=== PATIENT | female | born 1955 | race Two or more races ===

== ENCOUNTER 2016-12-11 10:48 | Day surgery (SDC) | payer BC ==
[~2016-12-11] VITALS: Ht 162.6 cm; Wt 71.3 kg
[~2016-12-11 10:48] MED LIST: NAPR-260 PO; TRAM50TA2 PO
[2016-12-11] MEDS ORDERED: ATENOLOL (11:54)
[2016-12-11] MEDS ORDERED: IBUPROFEN (11:54)
[2016-12-11 11:56] VITALS: Ht 162.6 cm; Wt 71.3 kg
[2016-12-11 12:16] VITALS: BP 136/98; PULSE 65; RESP 18
[2016-12-11 13:10] VITALS: BP 128/74; RESP 18
[2016-12-11 13:15] VITALS: BP 136/66
[2016-12-11 13:20] VITALS: BP 141/83; RESP 18
[2016-12-11] MEDS ORDERED: FENTAnyl 50 MCG/ML VIAL ONE (13:45)
[2016-12-11] MEDS ORDERED: MIDAZOLAM 1 MG/ML 2 ML INJ ONE ×2 (13:45)
[2016-12-11 14:01] VITALS: BP 119/83; PULSE 66; RESP 18
--- NOTE | 2016-12-11 14:07 | GILP ---
DATE OF PROCEDURE: 12/11/2016 PREOPERATIVE DIAGNOSIS: Screening colonoscopy. POSTOPERATIVE DIAGNOSIS: Very fixed sigmoid colon with what looks like a small ventral hernia at th e hysterectomy scar. The sigmoid colon seems to be stuck, fixed here due to previous adhesions. PROCEDURE DONE: Colonoscopy up to mid transverse colon. SURGEON: Bee Castañeda MD DESCRIPTION OF PROCEDURE: The patient was put in left lateral decubitus after obtaining informed co nsent, was given 4 mg IV Versed and 100 mcg of fentanyl during the procedure. Rectal exam was done which was normal. Advanced a pediatric Olympus video colonoscope with some difficulty to the mid transverse colon. Co uld not advance any further including compression on the pelvic suprapubic area where the colon loop s and it is stuck with fixed sigmoid colon, probably due to previous hysterectomy. Thus, the scope was withdrawn. Mid transverse colon to rectum normal except for fixed looping sigmoid colon in the pelvic area. Recommend barium enema as outpatient. Followup as outpatient in a few weeks after the BE. Dictated By: BEE PRITCHETT Conf#: [id number] DID#: [id number] CC: CORNELIO OVALLE MD;*EndCC*
== END 2016-12-11 13:56 | disposition home or self-care (01) ==
LOC: GIL 10:48
PROVIDERS: ATTEND Internal Medicine
DX: K43.9 Ventral hernia without obstruction or gangrene (principal); I10 Essential (primary) hypertension; E78.5 Hyperlipidemia, unspecified
CPT/HCPCS: 45378; J2250; J3010; Z7610

== ENCOUNTER → 2017-01-29 | Outpatient (CLI) | payer BC ==
[~2017-01-29] MED LIST changes: +ATENOLOL; +IBUPROFEN; -NAPR-260 PO; -TRAM50TA2 PO
--- NOTE | 2017-01-29 16:17 | RADRPT ---
PROCEDURE: XR Abdomen. CLINICAL INDICATION: Abdomen pain. The the patient was originally scheduled for barium enema. TECHNIQUE: AP supine abdomen x-ray. COMPARISON: None. FINDINGS: A large amount of stool is present in the colon. There is no evidence of obstruction. There are no abnormal calcifications overlying the urinary tracts. Surgical clips are present bilaterally in the pelvis. There are degenerative changes of the spine. IMPRESSION: 1. Large amount of stool in the colon. The patient will be rescheduled for barium enema. RPTAT: QQ .Modesto Reyna MD, MD Date Time Electronically viewed and signed by .Modesto Reyna MD, MD on 01/29/2017 16:17 .R/
== END | disposition home or self-care (01) ==
LOC: RAD 10:01
PROVIDERS: ATTEND Internal Medicine
DX: K59.00 Constipation, unspecified (principal)
CPT/HCPCS: 74000

== ENCOUNTER 2017-03-12 10:53 | Inpatient (IN) | payer BC ==
[2017-03-12] VITALS (23 sets, daily range): BP systolic 90–163; BP diastolic 51–74; PULSE 60–74; RESP 15–22; Ht 154.9 cm; Wt 71.0 kg
[~2017-03-12] VITALS: Ht 154.9 cm; Wt 71.0 kg
[2017-03-12] MEDS ORDERED: POLYMYXIN/BACITRACIN 1L IRRIG ONE (11:43)
[2017-03-12] MEDS ORDERED: BACITRACIN/POLYMYXIN 28.35 GM OINT TOP ONE (11:44)
[2017-03-12] MEDS ORDERED: ASPI325T4 PO (12:02)
[2017-03-12] MEDS ORDERED: NAPR-688 PO (12:02)
[2017-03-12] MEDS ORDERED: CEFAZOLIN 1 GM INJ ONE (12:23)
[2017-03-12] MEDS ORDERED: PROPOFOL 100 ML ONE (12:23)
[2017-03-12] MEDS ORDERED: FENTAnyl 50 MCG/ML VIAL ONE (12:24)
[2017-03-12] MEDS ORDERED: morphine SULFATE/PF (10 MG/10 ML) INJ ONE (12:24)
[2017-03-12] MEDS ORDERED: MIDAZOLAM 1 MG/ML 2 ML INJ ONE ×2 (12:24→12:25)
[2017-03-12] MEDS ORDERED: TRANEXAMIC ACID 1,000 MG in SOD CHLORIDE 0.9% 100 ML IV ONE ×4 (12:30)
--- NOTE | 2017-03-12 12:34 | HPN ---
Date/Time of Note Date/Time of Note DATE: 03/12/17 TIME: 12:34 Interval H&P Admission Note Pt. seen H&P reviewed: No system changes CHIO RODRIGUEZ MD Mar 12, 2017 12:34
[2017-03-12] MEDS ORDERED: ROPIVACAINE 0.5 % 30 ML VIAL ONE (12:55)
[2017-03-12] MEDS ORDERED: METOCLOPRAMIDE 10 MG INJ ONE (12:57)
[2017-03-12] MEDS ORDERED: ONDANSETRON 4 MG INJ ONE (12:57)
[2017-03-12] MEDS ORDERED: DEXAMETHASONE 4 MG/ML 1 ML INJ ONE (12:57)
[2017-03-12] MEDS ORDERED: KETOROLAC 30 MG INJ ONE (12:57)
[2017-03-12] MEDS ORDERED: ACETAMINOPHEN 1000MG/100ML IV 100 ML ONE (12:57)
[2017-03-12] MEDS ORDERED: HETASTARCH 6% NACL 500 ML ONE (13:33)
[2017-03-12] MEDS ORDERED: PHENYLephrine (100 MCG/ML) 5ML SYG ONE ×3 (13:38→14:26)
[2017-03-12] MEDS ORDERED: EPHEDrine SULFATE 50 MG/5 ML SYG IV PRN (14:00)
[2017-03-12] MEDS ORDERED: DIPHENHYDRAMINE 50 MG INJ IV PRN ×2 (14:00)
[2017-03-12] MEDS ORDERED: METOCLOPRAMIDE 10 MG INJ IV PRN (14:00)
[2017-03-12] MEDS ORDERED: ALBUMIN HUMAN 5% 250 ML IV PRN (14:00)
[2017-03-12] MEDS ORDERED: NALBUPHINE HCL (10 MG/1 ML) INJ IV PRN (14:00)
[2017-03-12] MEDS ORDERED: morphine 2 MG INJ IV PRN (14:00)
[2017-03-12] MEDS ORDERED: NALOXONE (0.4 MG/ML) INJ IV PRN (14:00)
[2017-03-12] MEDS ORDERED: hydrALAzine 20 MG INJ IV PRN (14:00)
[2017-03-12] MEDS ORDERED: morphine 4 MG/ML VIAL IV PRN (14:00)
[2017-03-12] MEDS ORDERED: MEPERIDINE 25 MG INJ IV PRN (14:00)
[2017-03-12] MEDS ORDERED: HYDROmorphONE 1 MG/ML SYG IV PRN ×2 (14:00)
[2017-03-12] MEDS ORDERED: LABETALOL HCL 20MG INJ IV PRN (14:00)
[2017-03-12] MEDS ORDERED: ALBUMIN HUMAN 5% 250 ML ONE (14:00)
[2017-03-12] MEDS ORDERED: CEFAZOLIN 1 GM/50 ML (PMX) 50 ML IVPB ONE (14:53)
[2017-03-12] MEDS ORDERED: CEFAZOLIN 1 GM INJ IM ONE (15:00)
[2017-03-12 15:10] LABS: HEMATOCRIT 34.5 % (37.0-47.0); HEMOGLOBIN 11.3 g/dl (12.0-16.0)
[2017-03-12 15:27] LABS: CALCIUM 8.5 mg/dl (8.4-10.2); CREATININE 0.52 mg/dl (0.44-1.00); POTASSIUM 4.1 mmol/L (3.5-5.1)
[2017-03-12] MEDS ORDERED: CEFAZOLIN 1 GM/50 ML (PMX) 50 ML IVPB SCH (15:30)
[2017-03-12] MEDS: CEFAZOLIN 1 GM/50 ML (PMX) 50 ML IVPB SCH (21:39)
[2017-03-13 05:20] LABS: ADD SCAN DIFF NO
[2017-03-13 05:31] LABS: BASOPHILS % 0.1 % (0.0-2.0); HEMATOCRIT 33.8 % (37.0-47.0); HEMOGLOBIN 11.6 g/dl (12.0-16.0); LYMPHOCYTES # 0.9 10^3/ul (0.8-2.9); MEAN CORPUSCULAR HEMOGLOBIN 30.3 pg (29.0-33.0); MEAN CORPUSCULAR HGB CONC 34.3 g/dl (32.0-37.0); MEAN CORPUSCULAR VOLUME 88.3 fl (82.0-101.0); MEAN PLATELET VOLUME 10.6 fl (7.4-10.4); MONOCYTE # 0.4 10^3/ul (0.3-0.9); MONOCYTES % 3.6 % (0.0-11.0); NEUTROPHIL # 10.1 10^3/ul (1.6-7.5); NEUTROPHILS % 87.9 % (39.0-77.0); PLATELET COUNT 235 10^3/UL (140-415); RED BLOOD COUNT 3.83 10^6/ul (4.20-5.40); RED CELL DISTRIBUTION WIDTH 12.5 % (11.5-14.5); WHITE BLOOD COUNT 11.5 10^3/ul (4.8-10.8)
[2017-03-13] MEDS: CEFAZOLIN 1 GM/50 ML (PMX) 50 ML IVPB SCH ×3 (05:57→21:19)
[2017-03-13 06:16] LABS: CREATININE 0.47 mg/dl (0.44-1.00)
[2017-03-13 07:49] VITALS: BP 120/65; RESP 17
[2017-03-13] MEDS: ONDANSETRON 4 MG INJ IV PRN ×2 (10:27→17:03)
[2017-03-13] MEDS: HYDROCODONE/APAP (10/325) TAB PO PRN (13:22)
[2017-03-13 13:25] VITALS: BP 110/60; PULSE 70
[2017-03-13] MEDS ORDERED: ACETAMINOPHEN 325 MG TAB PO PRN ×2 (15:30→16:00)
[2017-03-13] MEDS ORDERED: ONDANSETRON 4 MG INJ IV PRN (16:00)
[2017-03-13] MEDS ORDERED: MAGNESIUM HYDROXIDE 30ML CUP PO PRN (16:00)
[2017-03-13] MEDS ORDERED: ZOLPIDEM 5 MG TAB PO PRN (16:00)
[2017-03-13] MEDS ORDERED: BISACODYL (EC) 5 MG TAB PO PRN (16:00)
[2017-03-13] MEDS ORDERED: ACETAMINOPHEN 650 MG SUPP PR PRN (16:00)
[2017-03-13] MEDS ORDERED: DOCUSATE SODIUM 100 MG CAP PO PRN (16:00)
[2017-03-13] MEDS ORDERED: NACL 0.9% 3 ML SYG IV SCH (16:00)
--- NOTE | 2017-03-13 16:11 | QN ---
Documentation Comment [id number] ES NEVES MD Mar 13, 2017 16:11
[2017-03-13] MEDS: ASPIRIN 325 MG TAB PO SCH (17:01)
[2017-03-13] MEDS ORDERED: RIVAROXABAN 10 MG TABLET PO SCH (17:55)
[2017-03-13 21:11] VITALS: BP 119/57; RESP 20
[2017-03-14] MEDS: HYDROCODONE/APAP (10/325) TAB PO PRN ×4 (00:36→21:08)
[2017-03-14] MEDS: PANTOPRAZOLE 40 MG INJ IV SCH (05:40)
[2017-03-14] MEDS: CEFAZOLIN 1 GM/50 ML (PMX) 50 ML IVPB SCH ×3 (05:40→21:09)
[2017-03-14 06:12] LABS: ADD SCAN DIFF NO
[2017-03-14 06:14] LABS: BASOPHILS % 0.3 % (0.0-2.0); HEMATOCRIT 34.4 % (37.0-47.0); HEMOGLOBIN 11.6 g/dl (12.0-16.0); LYMPHOCYTES # 1.1 10^3/ul (0.8-2.9); LYMPHOCYTES % 9.4 % (15.0-51.0); MEAN CORPUSCULAR HEMOGLOBIN 30.1 pg (29.0-33.0); MEAN CORPUSCULAR HGB CONC 33.7 g/dl (32.0-37.0); MEAN CORPUSCULAR VOLUME 89.4 fl (82.0-101.0); MEAN PLATELET VOLUME 10.7 fl (7.4-10.4); MONOCYTE # 0.9 10^3/ul (0.3-0.9); MONOCYTES % 7.7 % (0.0-11.0); NEUTROPHIL # 9.4 10^3/ul (1.6-7.5); NEUTROPHILS % 81.6 % (39.0-77.0); PLATELET COUNT 221 10^3/UL (140-415); RED BLOOD COUNT 3.85 10^6/ul (4.20-5.40); RED CELL DISTRIBUTION WIDTH 12.5 % (11.5-14.5); WHITE BLOOD COUNT 11.6 10^3/ul (4.8-10.8)
[2017-03-14 06:42] LABS: CALCIUM 8.9 mg/dl (8.4-10.2); CREATININE 0.56 mg/dl (0.44-1.00); POTASSIUM 3.5 mmol/L (3.5-5.1)
[2017-03-14 08:34] VITALS: BP 143/68; RESP 19
[2017-03-14] MEDS: ASPIRIN 325 MG TAB PO SCH (08:40)
[2017-03-14] MEDS: ATENOLOL 25 MG TAB PO SCH (08:40)
--- NOTE | 2017-03-14 10:37 | OPPN ---
Date/Time of Note Date/Time of Note DATE: 03/14/17 TIME: 10:37 Post-Anesthesia Notes Post-Anesthesia Note Last documented vital signs Vital Signs Date Time Temp Pulse Resp B/P Pulse Ox O2 Delivery O2 Flow Rate FiO2 03/14/17 08:34 98.8 103 19 143/68 91 03/12/17 20:00 Nasal Cannula 2.0 Activity: WNL Respiratory function: WNL Cardiovascular function: WNL Mental status: Baseline Pain reasonably controlled: Yes Hydration appropriate: Yes Nausea/Vomiting absent: Yes AMAURI ALVAREZ MD Mar 14, 2017 10:37
--- NOTE | 2017-03-14 14:34 | PN ---
Date/Time of Note Date/Time of Note DATE: 03/14/17 TIME: 14:33 Assessment/Plan VTE Prophylaxis VTE Prophylaxis Intervention: other Lines/Catheters IV Catheter Type (from Nrsg): Saline Lock Urinary Cath still in place: Yes Reason Cath still needed: other (indicate) Assessment/Plan Chief Complaint/Hosp Course S/P RT KNEE SURGERY PAIN PLAN XARELTO Problems: Subjective 24 Hr Interval Summary Respiratory: no complaints Cardiovascular: no complaints Gastrointestinal: no complaints Musculoskeletal: bone/joint pain (+) Exam/Review of Systems Vital Signs Vitals Vital Signs Date Time Temp Pulse Resp B/P Pulse Ox O2 Delivery O2 Flow Rate FiO2 03/14/17 08:34 98.8 103 19 143/68 91 03/12/17 20:00 Nasal Cannula 2.0 Intake and Output 03/13/17 03/13/17 03/14/17 15:00 23:00 07:00 Intake Total 50 ml 850 ml 730 ml Output Total 500 ml 2500 ml Balance 50 ml 350 ml -1770 ml Exam Neck: supple Respiratory: clear to auscultation Cardiovascular: regular rate and rhythm Gastrointestinal: soft Musculoskeletal: nl extremities to inspection Extremities: normal pulses Results Result Diagram: 03/14/17 0500 03/14/17 0500 Results 24 hrs Laboratory Tests Test 03/14/17 05:00 White Blood Count 11.6 H Red Blood Count 3.85 L Hemoglobin 11.6 L Hematocrit 34.4 L Mean Corpuscular Volume 89.4 Mean Corpuscular Hemoglobin 30.1 Mean Corpuscular Hemoglobin Concent 33.7 Red Cell Distribution Width 12.5 Platelet Count 221 Mean Platelet Volume 10.7 H Neutrophils % 81.6 H Lymphocytes % 9.4 L Monocytes % 7.7 Eosinophils % 0.0 Basophils % 0.3 Nucleated Red Blood Cells % 0.0 Neutrophils # 9.4 H Lymphocytes # 1.1 Monocytes # 0.9 Eosinophils # 0.0 Basophils # 0.0 Nucleated Red Blood Cells # 0.0 Sodium Level 134 L Potassium Level 3.5 Chloride Level 99 Carbon Dioxide Level 29 Anion Gap 10 # Blood Urea Nitrogen 13 Creatinine 0.56 Glucose Level 192 Calcium Level 8.9 Medications Medications Current Medications Hydromorphone HCl (Dilaudid) 0.2 mg Q2H PRN IV PAIN LEVEL 1-5; Start 03/12/17 at 14:00 Hydromorphone HCl (Dilaudid) 0.4 mg Q2H PRN IV PAIN LEVEL 6-10; Start 03/12/17 at 14:00 Morphine Sulfate (morphine) 2 mg Q2H PRN IV PAIN LEVEL 1-5; Start 03/12/17 at 14 :00 Morphine Sulfate (morphine) 4 mg Q2H PRN IV PAIN LEVEL 6-10; Start 03/12/17 at 14:00 Ondansetron HCl (Zofran Inj) 4 mg Q6H PRN IV NAUSEA AND/OR VOMITING Last administered on 03/13/17 17:03; Admin Dose 4 MG; Start 03/12/17 at 14:00 Naloxone HCl 0.2 mg 0.2 mg Q2M PRN IV FOR RESP RATE 8 OR LESS; Start 03/12/17 at 14:00 Cefazolin Sodium (Ancef 1 Gm/50 ml (Pmx)) 50 ml @ 100 mls/hr Q8 IVPB Last administered on 03/14/17 13:58; Admin Dose 100 MLS/HR; Start 03/12/17 at 22:00 Acetaminophen/ Hydrocodone Bitart ([place] (10/325)) 1 tab Q4H PRN PO PAIN Last administered on 03/14/17 12:44; Admin Dose 1 TAB; Start 03/13/17 at 08:00 Acetaminophen (Tylenol Tab) 650 mg Q6H PRN PO PAIN AND OR ELEVATED TEMP Last administered on 03/14/17 03:14; Admin Dose 650 MG; Start 03/13/17 at 15:30 Aspirin (Aspirin) 325 mg DAILY PO Last administered on 03/14/17 08:40; Admin Dose 325 MG; Start 03/13/17 at 16:00 Ondansetron HCl (Zofran Inj) 4 mg Q6H PRN IV NAUSEA AND/OR VOMITING; Start 03/13 at 16:00 Acetaminophen (Tylenol Tab) 650 mg Q6H PRN PO PAIN LEVEL 1-3 OR FEVER; Start at 16:00 Acetaminophen (Tylenol Supp) 650 mg Q6H PRN IN PAIN LEVEL 1-3 OR FEVER; Start 03/13/17 at 16:00 Docusate Sodium (Colace) 100 mg Q12H PRN PO CONSTIPATION; Start 03/13/17 at 16: 00 Magnesium Hydroxide (Milk Of Mag) 30 ml DAILY PRN PO CONSTIPATION; Start at 16:00 Bisacodyl (Dulcolax) 5 mg DAILY PRN PO CONSTIPATION; Start 03/13/17 at 16:00 Zolpidem Tartrate (Ambien) 5 mg QHS PRN PO SLEEP; Start 03/13/17 at 16:00 Pantoprazole (Protonix Iv) 40 mg DAILY@06 IV Last administered on 03/14/17 05: 40; Admin Dose 40 MG; Start 03/14/17 at 06:00 Atenolol (Tenormin) 25 mg DAILY PO Last administered on 03/14/17 08:40; Admin Dose 25 MG; Start 03/14/17 at 09:00 ES NEVES MD Mar 14, 2017 14:34
[2017-03-14] MEDS: RIVAROXABAN 10 MG TABLET PO SCH (17:09)
[2017-03-14 20:14] VITALS: BP 153/74; RESP 16
[2017-03-15] MEDS: HYDROCODONE/APAP (10/325) TAB PO PRN ×4 (02:41→22:52)
[2017-03-15 05:08] LABS: ADD SCAN DIFF NO
[2017-03-15 05:16] LABS: BASOPHIL # 0.1 10^3/ul (0.0-0.1); BASOPHILS % 0.5 % (0.0-2.0); EOSINOPHILS % 0.1 % (0.0-7.0); HEMATOCRIT 33.6 % (37.0-47.0); HEMOGLOBIN 11.2 g/dl (12.0-16.0); LYMPHOCYTES # 1.4 10^3/ul (0.8-2.9); LYMPHOCYTES % 10.6 % (15.0-51.0); MEAN CORPUSCULAR HEMOGLOBIN 29.6 pg (29.0-33.0); MEAN CORPUSCULAR HGB CONC 33.3 g/dl (32.0-37.0); MEAN CORPUSCULAR VOLUME 88.7 fl (82.0-101.0); MEAN PLATELET VOLUME 10.4 fl (7.4-10.4); MONOCYTE # 1.1 10^3/ul (0.3-0.9); MONOCYTES % 8.3 % (0.0-11.0); NEUTROPHIL # 10.2 10^3/ul (1.6-7.5); NEUTROPHILS % 79.8 % (39.0-77.0); PLATELET COUNT 212 10^3/UL (140-415); RED BLOOD COUNT 3.79 10^6/ul (4.20-5.40); RED CELL DISTRIBUTION WIDTH 12.6 % (11.5-14.5); WHITE BLOOD COUNT 12.8 10^3/ul (4.8-10.8)
[2017-03-15 05:42] LABS: CALCIUM 9.2 mg/dl (8.4-10.2); CREATININE 0.47 mg/dl (0.44-1.00); POTASSIUM 3.7 mmol/L (3.5-5.1)
[2017-03-15] MEDS: CEFAZOLIN 1 GM/50 ML (PMX) 50 ML IVPB SCH (06:03)
[2017-03-15] MEDS: PANTOPRAZOLE 40 MG INJ IV SCH (06:03)
[2017-03-15 08:00] VITALS: BP 139/67; RESP 18
[2017-03-15] MEDS: ASPIRIN 325 MG TAB PO SCH (09:02)
[2017-03-15] MEDS: ATENOLOL 25 MG TAB PO SCH (09:03)
[2017-03-15] MEDS: RIVAROXABAN 10 MG TABLET PO SCH (18:12)
[2017-03-15 19:30] VITALS: BP 139/71; RESP 18
[2017-03-15 19:41] VITALS: BP 132/72; RESP 19
--- NOTE | 2017-03-15 19:57 | PDOCDIS ---
Discharge Instructions CONDITION Patient Condition: Stable HOME CARE INSTRUCTIONS: Diet Instructions: RegularSpecial Diet: REGULAR ACTIVITY: Activity Restrictions: Slowly Increase Activity Rest between Activity Avoid heavy lifting Do not Drive Do not operate Machinery Do not operate Power Tool Avoid Heavy Housework Bathing Restrictions: Tub Bath FOLLOW UP/APPOINTMENTS Follow-up Plan see pcp [address] khanna 1 wk ES NEVES MD Mar 15, 2017 19:57
[2017-03-15] MEDS ORDERED: BISA5TAB6 PO (19:59)
[2017-03-15] MEDS ORDERED: Hydrocodone/Apap (10/325) PO (19:59)
[2017-03-15] MEDS ORDERED: RIVA10TA PO (19:59)
--- NOTE | 2017-03-15 20:36 | PN ---
Date/Time of Note Date/Time of Note DATE: 03/15/17 TIME: 20:35 Assessment/Plan VTE Prophylaxis VTE Prophylaxis Intervention: other Lines/Catheters IV Catheter Type (from Nrsg): Saline Lock Urinary Cath still in place: No Assessment/Plan Chief Complaint/Hosp Course S/P RT KNEE SURGERY leucocytosis PAIN meds PLAN XARELTO home soon Problems: Subjective 24 Hr Interval Summary Respiratory: shortness of breath Gastrointestinal: no complaints Genitourinary: no complaints Exam/Review of Systems Vital Signs Vitals Vital Signs Date Time Temp Pulse Resp B/P Pulse Ox O2 Delivery O2 Flow Rate FiO2 03/15/17 19:30 99.9 84 18 139/71 98 03/12/17 20:00 Nasal Cannula 2.0 Intake and Output 03/14/17 03/14/17 03/15/17 15:00 23:00 07:00 Intake Total 50 ml 770 ml 550 ml Output Total 550 ml Balance 50 ml 220 ml 550 ml Exam Neck: supple Respiratory: clear to auscultation Cardiovascular: regular rate and rhythm Gastrointestinal: soft Results Result Diagram: 03/15/17 0441 03/15/17 0441 Results 24 hrs Laboratory Tests Test 03/15/17 04:41 White Blood Count 12.8 H Red Blood Count 3.79 L Hemoglobin 11.2 L Hematocrit 33.6 L Mean Corpuscular Volume 88.7 Mean Corpuscular Hemoglobin 29.6 Mean Corpuscular Hemoglobin Concent 33.3 Red Cell Distribution Width 12.6 Platelet Count 212 Mean Platelet Volume 10.4 Neutrophils % 79.8 H Lymphocytes % 10.6 L Monocytes % 8.3 Eosinophils % 0.1 Basophils % 0.5 Nucleated Red Blood Cells % 0.0 Neutrophils # 10.2 H Lymphocytes # 1.4 Monocytes # 1.1 H Eosinophils # 0.0 Basophils # 0.1 Nucleated Red Blood Cells # 0.0 Sodium Level 138 Potassium Level 3.7 Chloride Level 97 Carbon Dioxide Level 29 Anion Gap 16 Blood Urea Nitrogen 11 Creatinine 0.47 Glucose Level 186 Calcium Level 9.2 Medications Medications Current Medications Hydromorphone HCl (Dilaudid) 0.2 mg Q2H PRN IV PAIN LEVEL 1-5; Start 03/12/17 at 14:00 Hydromorphone HCl (Dilaudid) 0.4 mg Q2H PRN IV PAIN LEVEL 6-10; Start 03/12/17 at 14:00 Morphine Sulfate (morphine) 2 mg Q2H PRN IV PAIN LEVEL 1-5; Start 03/12/17 at 14 :00 Morphine Sulfate (morphine) 4 mg Q2H PRN IV PAIN LEVEL 6-10; Start 03/12/17 at 14:00 Naloxone HCl (Narcan) 0.2 mg Q2M PRN IV FOR RESP RATE 8 OR LESS; Start 03/12/17 at 14:00 Acetaminophen/ Hydrocodone Bitart ([place] (10/325)) 1 tab Q4H PRN PO PAIN Last administered on 03/15/17 19:10; Admin Dose 1 TAB; Start 03/13/17 at 08:00 Acetaminophen (Tylenol Tab) 650 mg Q6H PRN PO PAIN AND OR ELEVATED TEMP Last administered on 03/14/17 03:14; Admin Dose 650 MG; Start 03/13/17 at 15:30 Aspirin (Aspirin) 325 mg DAILY PO Last administered on 03/15/17 09:02; Admin Dose 325 MG; Start 03/13/17 at 16:00 Ondansetron HCl (Zofran Inj) 4 mg Q6H PRN IV NAUSEA AND/OR VOMITING; Start 03/13 at 16:00 Acetaminophen (Tylenol Tab) 650 mg Q6H PRN PO PAIN LEVEL 1-3 OR FEVER; Start at 16:00 Acetaminophen (Tylenol Supp) 650 mg Q6H PRN RI PAIN LEVEL 1-3 OR FEVER; Start 03/13/17 at 16:00 Docusate Sodium (Colace) 100 mg Q12H PRN PO CONSTIPATION; Start 03/13/17 at 16: 00 Magnesium Hydroxide (Milk Of Mag) 30 ml DAILY PRN PO CONSTIPATION; Start at 16:00 Bisacodyl (Dulcolax) 5 mg DAILY PRN PO CONSTIPATION; Start 03/13/17 at 16:00 Zolpidem Tartrate (Ambien) 5 mg QHS PRN PO SLEEP; Start 03/13/17 at 16:00 Atenolol (Tenormin) 25 mg DAILY PO Last administered on 03/15/17 09:03; Admin Dose 25 MG; Start 03/14/17 at 09:00 Pantoprazole (Protonix Tab) 40 mg DAILY@06 PO ; Start 03/16/17 at 06:00 ES NEVES MD Mar 15, 2017 20:36
[2017-03-16] MEDS ORDERED: PANTOPRAZOLE (EC) 40 MG TAB PO SCH (06:00)
== END 2017-03-15 23:10 | disposition home health service (06) | DRG 470 ==
LOC: REC 10:53 → MS1 16:10
PROVIDERS: ADMIT Specialist; ATTEND Specialist
PROC: 0SRC0JZ Replacement of Right Knee Joint with Synthetic Substitute, Open Approach (ICD-10-PCS; principal; 2017-03-12 12:30)
DX: M17.11 Unilateral primary osteoarthritis, right knee (principal); I10 Essential (primary) hypertension
CPT/HCPCS: 80048; 85014; 85018; 85025; 87086; 88304; 88311; 97110; 97116; 97162; 97530; C9113; J0131; J0690; J1100; J1885; J2250; J2274; J2370; J2405; J2765; J2795; J3010; P9045

== ENCOUNTER 2018-07-27 08:35 | Day surgery (SDC) | END 2018-07-27 12:06 | disposition home or self-care (01) ==

== ENCOUNTER 2018-11-17 08:27 | Day surgery (SDC) | payer BC ==
[~2018-11-17] VITALS: Ht 157.5 cm; Wt 69.9 kg
[~2018-11-17 08:27] MED LIST changes: +ALEN70TA5 PO; +ATEN-51 PO; -ATENOLOL; +ENAL2.5T PO; +GLIM1TAB2 PO; -IBUPROFEN; +LOVA20TA PO; +METF500T24 PO
[2018-11-17 09:06] VITALS: Ht 157.5 cm; Wt 69.9 kg
[2018-11-17] MEDS ORDERED: RANI150T5 PO (09:11)
--- NOTE | 2018-11-17 09:17 | PREAC ---
Date/Time of Note Date/Time of Note DATE: 11/17/18 TIME: 09:16 Anesthesia Eval and Record Evaluation Time Pre-Procedure Interview DATE: 11/17/18 TIME: 09:16 Age 63 Sex female NPO: 8 hrs Preoperative diagnosis abdominal pain, screening Planned procedure EGD, colonoscopy Past Medical History Past Medical History: Includes Cardio: HTN, Dyslipidemia Endo: Diabetes GI: GERD Surgery & Anesthesia Issues No known issue Meds Anticoagulation: No Beta Kingsley within 24 hr: Yes Reason Beta Kingsley not given: Bradycarida, Hypotension Reported Medications Ranitidine Hcl* (Ranitidine Hcl*) 150 Mg Tablet, 150 MG PO Q12, #60 TAB 11/17/18 Lovastatin* (Lovastatin*) 20 Mg Tablet, 20 MG PO HS, TAB 07/27/18 Metformin Hcl* (Metformin Hcl*) 500 Mg Tablet, 500 MG PO WITH BREAKFAST, #30 TAB 07/27/18 Enalapril Maleate* (Enalapril Maleate*) 2.5 Mg Tablet, 2.5 MG PO DAILY, TAB 07/27/18 Atenolol* (Atenolol*) 25 Mg Tablet, 25 MG PO DAILY, #30 TAB 07/27/18 Discontinued Reported Medications Glimepiride* (Glimepiride*) 1 Mg Tablet, 1 MG PO WITH BREAKFAST DINNE, TAB 07/27/18 Alendronate Sodium* (Fosamax*) 70 Mg Tablet, 70 MG PO Q7D, #4 TAB 07/27/18 Meds reviewed: Yes Allergies Coded Allergies: No Known Allergy (Unverified , 07/27/18) Allergies Reviewed: Yes Labs/Studies Labs Reviewed: Reviewed by anesthesiologist test: N/A Pre-procedure Exam Airway: Adequate mouth opening, Adequate thyromental dist Mallampati: Mallampati II Teeth: Abnormal (dentures) Lung: Normal Heart: Normal ASA Physical Status ASA physical status: 2 Emergency: None Planned Anesthetic General/MAC: Mask Planned Pain Management Parenteral pain med Pre-operative Attestations Prior to commencing anesthesia and surgery, the patient was re-evaluated, there was verification of: *The patient's identity *The results of appropriate recent lab work and preoperative vital signs *The above evaluation not changing prior to induction *Anesthetic plan, risk benefits, alternative and complications discussed with patient/family; questions answered; patient/family understands, accepts and wishes to proceed. Machine Staker used FLAVIO CHENEY MD Nov 17, 2018 09:17
[2018-11-17] MEDS ORDERED: PROPOFOL 60 ML ONE (09:22)
[2018-11-17] MEDS ORDERED: LIDOCAINE 2% (SDV) 5 ML INJ ONE (09:23)
[2018-11-17] MEDS ORDERED: HYDROmorphONE 1 MG/5 ML IV SYRINGE IV PRN (09:30)
[2018-11-17] MEDS ORDERED: hydrALAzine 20 MG INJ IV PRN (09:30)
[2018-11-17] MEDS ORDERED: ONDANSETRON 4 MG INJ IV PRN (09:30)
[2018-11-17] MEDS ORDERED: LABETALOL HCL 20MG INJ IV PRN (09:30)
[2018-11-17 09:40] VITALS: BP 160/75; PULSE 66; RESP 20
--- NOTE | 2018-11-17 10:32 | PAC ---
Date/Time of Note Date/Time of Note DATE: 11/17/18 TIME: 10:32 Post-Anesthesia Notes Post-Anesthesia Note Activity: WNL Respiratory function: WNL Cardiovascular function: WNL Mental status: Baseline Pain reasonably controlled: Yes Hydration appropriate: Yes Nausea/Vomiting absent: Yes Comments BP: 107/66 HR: 75 RR: 15 T: 98 SaO2: 100% FLAVIO CHENEY MD Nov 17, 2018 10:32
[2018-11-17 11:30] VITALS: BP 153/83; RESP 18
== END 2018-11-17 15:36 | disposition home or self-care (01) ==
LOC: GIL 08:27
PROVIDERS: ATTEND Internal Medicine Gastroenterology
DX: Z12.11 Encounter for screening for malignant neoplasm of colon (principal); K29.50 Unspecified chronic gastritis without bleeding; K64.4 Residual hemorrhoidal skin tags; E11.9 Type 2 diabetes mellitus without complications; E78.5 Hyperlipidemia, unspecified; I10 Essential (primary) hypertension
CPT/HCPCS: 43239; 45378; 82962; 88305; 88312; Z7610

== ENCOUNTER 2018-12-06 11:21 | Day surgery (SDC) | payer BC ==
[~2018-12-06] VITALS: Ht 157.5 cm; Wt 70.7 kg
[2018-12-06] VITALS (10 sets, daily range): BP systolic 113–139; BP diastolic 59–76; PULSE 54–75; RESP 14–18; Ht 157.5 cm; Wt 70.7 kg
[~2018-12-06 11:21] MED LIST changes: -ALEN70TA5 PO; -GLIM1TAB2 PO; +RANI150T5 PO
[2018-12-06] MEDS ORDERED: GLIP5TAB13 PO (12:15)
--- NOTE | 2018-12-06 13:29 | PREAC ---
Date/Time of Note Date/Time of Note DATE: 12/06/18 TIME: 13:27 Anesthesia Eval and Record Evaluation Time Pre-Procedure Interview DATE: 12/06/18 TIME: 13:27 Age 63 Sex female NPO: 8 hrs Preoperative diagnosis spinal stenosis Planned procedure lumbar epidural under fluoroscopy Past Medical History Past Medical History: Includes Cardio: HTN Surgery & Anesthesia Issues No known issue Meds Anticoagulation: No Beta Kignsley within 24 hr: No Reason Beta Kingsley not given: Pt. not on B-Kingsley Reported Medications Glipizide* (Glipizide*) 5 Mg Tablet, 5 MG PO AC BREAKFAST, TAB 12/06/18 Ranitidine Hcl* (Ranitidine Hcl*) 150 Mg Tablet, 150 MG PO Q12, #60 TAB 11/17/18 Lovastatin* (Lovastatin*) 20 Mg Tablet, 20 MG PO HS, TAB 07/27/18 Metformin Hcl* (Metformin Hcl*) 500 Mg Tablet, 500 MG PO WITH BREAKFAST, #30 TAB 07/27/18 Atenolol* (Atenolol*) 25 Mg Tablet, 25 MG PO DAILY, #30 TAB 07/27/18 Discontinued Reported Medications Enalapril Maleate* (Enalapril Maleate*) 2.5 Mg Tablet, 2.5 MG PO DAILY, TAB 07/27/18 Meds reviewed: Yes Allergies Coded Allergies: No Known Allergy (Unverified , 12/06/18) Allergies Reviewed: Yes Labs/Studies Labs Reviewed: Reviewed by anesthesiologist Result Diagram: 12/06/18 1218 12/06/18 1218 Laboratory Tests 12/06/18 12:18 test: Negative Pre-procedure Exam Last vitals Vital Signs Date Temp Pulse Resp B/P (MAP) Pulse Ox O2 O2 Flow FiO2 Time Delivery Rate 12/06/18 98.2 57 16 120/64 96 Room Air 12:19 (82) Airway: Adequate mouth opening, Adequate thyromental dist Mallampati: Mallampati II Teeth: Abnormal (partial upper and lower dentures) Lung: Normal Heart: Normal ASA Physical Status ASA physical status: 2 Emergency: None Planned Anesthetic General/MAC: MAC Planned Pain Management Parenteral pain med Pre-operative Attestations Prior to commencing anesthesia and surgery, the patient was re-evaluated, there was verification of: *The patient's identity *The results of appropriate recent lab work and preoperative vital signs *The above evaluation not changing prior to induction *Anesthetic plan, risk benefits, alternative and complications discussed with patient/family; questions answered; patient/family understands, accepts and wishes to proceed. Joe Rivera M.D. Dec 06, 2018 13:29
[2018-12-06] MEDS ORDERED: MEPERIDINE 25 MG INJ IV PRN (13:30)
[2018-12-06] MEDS ORDERED: hydrALAzine 20 MG INJ IV PRN (13:30)
[2018-12-06] MEDS ORDERED: MIDAZOLAM 1 MG/ML 2 ML INJ IV PRN (13:30)
[2018-12-06] MEDS ORDERED: OXYCODONE/ACETAMINOPHEN (5/325) TAB PO PRN ×2 (13:30)
[2018-12-06] MEDS ORDERED: IPRATROPIUM (NEB) 0.5 MG/2.5 ML AMP HHN PRN (13:30)
[2018-12-06] MEDS ORDERED: LABETALOL HCL 20MG INJ IV PRN (13:30)
[2018-12-06] MEDS ORDERED: DIPHENHYDRAMINE 50 MG INJ IV PRN (13:30)
[2018-12-06] MEDS ORDERED: ALBUTEROL 0.083% (NEB) 2.5 MG/3 ML AMP HHN PRN (13:30)
[2018-12-06] MEDS ORDERED: FENTAnyl 50 MCG/ML VIAL IV PRN ×3 (13:30)
[2018-12-06] MEDS ORDERED: TRIMETHOBENZAMIDE 100 MG/ML VIAL IM PRN (13:30)
[2018-12-06] MEDS ORDERED: EPHEDrine SULFATE 50 MG/5 ML SYG IV PRN (13:30)
[2018-12-06] MEDS ORDERED: ONDANSETRON 4 MG INJ IV PRN (13:30)
[2018-12-06] MEDS ORDERED: HYDROmorphONE 1 MG/5 ML IV SYRINGE IV PRN ×3 (13:30)
[2018-12-06] MEDS ORDERED: LIDOCAINE 1% (MPF) 30 ML INJ ONE (13:47)
[2018-12-06] MEDS ORDERED: MIDAZOLAM 1 MG/ML 2 ML INJ ONE (13:54)
[2018-12-06] MEDS ORDERED: PROPOFOL 20 ML ONE (13:54)
--- NOTE | 2018-12-06 13:56 | HPN ---
Date/Time of Note Date/Time of Note DATE: 12/06/18 TIME: 13:56 Interval H&P Admission Note Pt. seen H&P reviewed: No system changes CHIO RODRIGUEZ MD Dec 06, 2018 13:56
--- NOTE | 2018-12-06 13:57 | OPR ---
Date/Time of Note Date/Time of Note DATE: 12/06/18 TIME: 13:56 Operative Report Preoperative Diagnosis sppinal stemosis Postoperative Diagnosis same Operation/Procedure Performed lumbar epidural steroid injection Surgeon see signature line [employer] Lead none Anesthesia Type: MAC Estimated Blood Loss: none Transfusion none Specimen none Grafts/Implants none Complications none Procedure Description lumbar epidural steroid injection CHIO RODRIGUEZ MD Dec 06, 2018 13:57
[2018-12-06] MEDS ORDERED: METHYLPREDNISOLONE ACET 40 MG/ML 1 ML INJ ONE (14:00)
[2018-12-06] MEDS ORDERED: METHYLPREDNISOLONE ACET 40 MG/ML 1 ML INJ SCH (14:00)
[2018-12-06] MEDS ORDERED: METHYLPREDNISOLONE ACET 40 MG/ML 5 ML INJ ONE (14:00)
--- NOTE | 2018-12-06 14:15 | PAC ---
Date/Time of Note Date/Time of Note DATE: 12/06/18 TIME: 14:14 Post-Anesthesia Notes Post-Anesthesia Note Last documented vital signs Vital Signs Date Temp Pulse Resp B/P (MAP) Pulse Ox O2 O2 Flow FiO2 Time Delivery Rate 12/06/18 98.2 57 16 120/64 96 Room Air 12:19 (82) Activity: WNL Respiratory function: WNL Cardiovascular function: WNL Mental status: Baseline Pain reasonably controlled: Yes Hydration appropriate: Yes Nausea/Vomiting absent: Yes Joe Rivera M.D. Dec 06, 2018 14:14
--- NOTE | 2018-12-07 08:59 | OPR ---
DATE OF OPERATION: 12/06/2018 PREOPERATIVE DIAGNOSES: Lumbar spine stenosis, disk herniation, radiculopathy and sciatica. POSTOPERATIVE DIAGNOSES: Lumbar spine stenosis, disk herniation, radiculopathy and sciatica. OPERATION PERFORMED: 1. Lumbar epidural steroid injection. 2. Interpretation of intraoperative fluoroscopy x-ray. ANESTHESIA: MAC. ESTIMATED BLOOD LOSS: None. COMPLICATIONS: None. PROCEDURE: The patient was taken to the operating room and placed in the decubitus position. Back p repped with a ChloraPrep, intravenous sedation provided by anesthesia. C-arm brought over the lumbar spine. L4-5 level identified. A 22-gauge 3-1/2 inch spinal needle was introduced using the loss of resistance technique. No CSF or blood aspirated with 80 mg of Depo-Medrol and 1 mL of 1% Xylocaine injected without complication. The patient tolerated procedure well. Anesthetic reversed and taken to recovery room in stable condition. Dictated By: CHIO BLACKBURN/NTS Conf#: [id number] DID#: [id number] CC: CHIO RODRIGUEZ MD;*EndCC*
--- NOTE | 2018-12-07 15:16 | RADRPT ---
Vent Rate: 54 bpm RR Interval: 0 msec DE Interval: 148 msec QRS Duration: 82 msec QT Interval: 458 msec QTC Interval: 434 msec P-R-T [place]: 26 - 23 - 18 degrees Sinus bradycardia Otherwise normal ECG Electronically Signed By: Isaac Nye
== END 2018-12-06 15:11 | disposition home or self-care (01) ==
LOC: SDS 11:21
PROVIDERS: ATTEND Specialist
DX: M48.061 Spinal stenosis, lumbar region without neurogenic claudication (principal); M54.16 Radiculopathy, lumbar region; M54.30 Sciatica, unspecified side; I10 Essential (primary) hypertension
CPT/HCPCS: 62323; 71045; 72020; 80053; 82962; 85025; 85610; 85730; 93005; J1030; J2250; Z7512; Z7610

== ENCOUNTER 2019-02-06 09:00 | Emergency (ER) | payer BC ==
[~2019-02-06] VITALS: Wt 77.0 kg
[~2019-02-06 09:00] MED LIST changes: -ENAL2.5T PO; +GLIP5TAB13 PO
[2019-02-06] MEDS ORDERED: LORAZEPAM 1 MG TAB PO ONE (09:30)
[2019-02-06] MEDS ORDERED: LIDOCAINE/MYLANTA 40 ML BTL PO ONE (09:30)
[2019-02-06] MEDS ORDERED: METF500T24 PO (10:28)
[2019-02-06] MEDS ORDERED: ATEN-51 PO (10:28)
[2019-02-06] MEDS ORDERED: GLIP5TAB13 PO (10:28)
[2019-02-06] MEDS ORDERED: NAPR-688 PO (10:29)
[2019-02-06] MEDS ORDERED: LOVA20TA PO (10:30)
[2019-02-06] MEDS ORDERED: MAG355OR14 PO (10:41)
--- NOTE | 2019-02-06 10:42 | ERD ---
ER Documentation Chief Complaint Chief Complaint FOREIGN BODY AFTER EATING DINNER LAST NIGHT. CWP AND SALIVATION NO STRIDOR HPI Patient is a 63-year-old female with hypertension and diabetes who presents with a feeling of a foreign body. She ate a fish soup last night and feels like she might have a foreign body stuck in her throat. She feels throat pain and chest pain. She felt like she might of gotten a fishbone stuck. She is able to s wallow both food and fluids since however. She does not remember the name of her primary doctor. ROS All systems reviewed and are negative except as per history of present illness. Medications Home Meds Active Scripts Mag Hydrox/Al Hydrox/Simeth (Maalox Advanced Suspension) 355 Ml Oral.susp, 355 ML PO BID, #1 Prov:BRYN GLASGOW MD 02/06/19 Reported Medications Lovastatin* (Lovastatin*) 20 Mg Tablet, 20 MG PO HS, TAB 02/06/19 Naproxen* (Naproxen*) 500 Mg Tablet, 500 MG PO NEEDED, TAB 02/06/19 Metformin Hcl* (Metformin Hcl*) 500 Mg Tablet, 500 MG PO WITH BREAKFAST, #30 TAB 02/06/19 Glipizide* (Glipizide*) 5 Mg Tablet, 5 MG PO AC BREAKFAST, TAB 02/06/19 Atenolol* (Atenolol*) 25 Mg Tablet, 25 MG PO DAILY, #30 TAB 02/06/19 Discontinued Reported Medications Glipizide* (Glipizide*) 5 Mg Tablet, 5 MG PO AC BREAKFAST, TAB 12/06/18 Ranitidine Hcl* (Ranitidine Hcl*) 150 Mg Tablet, 150 MG PO Q12, #60 TAB 11/17/18 Lovastatin* (Lovastatin*) 20 Mg Tablet, 20 MG PO HS, TAB 07/27/18 Metformin Hcl* (Metformin Hcl*) 500 Mg Tablet, 500 MG PO WITH BREAKFAST, #30 TAB 07/27/18 Atenolol* (Atenolol*) 25 Mg Tablet, 25 MG PO DAILY, #30 TAB 07/27/18 Allergies Allergies: Coded Allergies: No Known Allergy (Unverified , 02/06/19) PMhx/Soc History of Surgery: Yes (knee, hysterectomy, EGD) Anesthesia Reaction: No Hx Neurological Disorder: No Hx Respiratory Disorders: No Hx Cardiac Disorders: Yes (htn) Hx Psychiatric Problems: No Hx Miscellaneous Medical Probl: No Hx Alcohol Use: No Hx Substance Use: No Hx Tobacco Use: No FmHx Family History: diabetes Physical Exam Vitals Vital Signs Date Temp Pulse Resp B/P (MAP) Pulse Ox O2 O2 Flow FiO2 Time Delivery Rate 02/06/19 97.6 98 18 180/88 98 09:02 (118) Physical Exam Const: No acute distress Head: Atraumatic Eyes: Normal Conjunctiva ENT: Normal External Ears, Nose and Mouth. No stridor, no foreign body visualized in the oropharynx Neck: Full range of motion. No meningismus. Resp: Clear to auscultation bilaterally Cardio: Regular rate and rhythm, no murmurs Abd: Soft, non tender, non distended. Normal bowel sounds Skin: No petechiae or rashes Back: No midline or flank tenderness Ext: No cyanosis, or edema Neur: Awake and alert Psych: Normal Mood and Affect Results 24 hrs Current Medications Medications Dose Sig/Wally Start Time Status Last (Trade) Ordered Route PRN Stop Time Admin Dose Reason Admin 40 ml ONCE ONCE 02/06/19 DC 02/06/19 Miscellaneous PO 09:30 02/06/19 09:57 Medication 09:31 (Gi Cocktail (2)) Lorazepam 1 mg ONCE ONCE 02/06/19 DC 02/06/19 (Ativan) PO 09:30 02/06/19 09:57 09:31 Procedures/MDM EKG read by me: Rate/Rhythm: Regular rate and rhythm at a rate of 81 Intervals: Normal Impression: No evidence of ischemia or arrhythmia Chest x-ray negative per radiology. Cervical spine x-ray negative per radiology for foreign body. Patient refused CT scan of the neck. Patient is a 63-year-old female presents with throat pain and chest pain with a feeling of a foreign body. Chest x-ray and cervical spine soft tissue x-ray were negative for foreign body. I did want to do a CT scan of the neck to rule out fishbone but the patient is refusing CT scan she says she gets anxious. The patient was given a GI cocktail. There is no obvious sign of radiopaque foreign body at this time. She may have scratched her esophagus and not actually have a foreign body at this time. She will be given a prescription for Maalox. She can return for any worsening symptoms. Departure Diagnosis: Primary Impression: Throat pain Condition: Fair Patient Instructions: Esophageal Spasm Referrals: Your doctor Additional Instructions: Llame al doctor nomsimón machuca (Referral Sources) MAANA y michelle ayla MIRI PARA DENTRO DE AYLA SEMANA. Dgale a la secretaria que nosotros le instruimos hacer esta miri.Avise o llame si farmer condicin se empeora antes de la miri. BRYN GLASGOW MD Feb 06, 2019 10:42
[2019-02-06 12:06] VITALS: BP 150/60; PULSE 72; RESP 18
== END 2019-02-06 12:52 | disposition home or self-care (01) ==
LOC: E/R 09:00
DX: R07.89 Other chest pain (principal); R07.0 Pain in throat; E11.9 Type 2 diabetes mellitus without complications; I10 Essential (primary) hypertension; Z79.84 Long term (current) use of oral hypoglycemic drugs
CPT/HCPCS: 70360; 71045; 93005; Z7502; Z7610

== ENCOUNTER 2019-02-07 19:48 | Emergency (ER) | payer BC ==
[~2019-02-07] VITALS: Ht 157.5 cm; Wt 70.0 kg
[~2019-02-07 19:48] MED LIST changes: +MAG355OR14 PO; +NAPR-688 PO; -RANI150T5 PO
[2019-02-07 20:29] VITALS: Ht 157.5 cm; Wt 70.0 kg
[2019-02-07] MEDS ORDERED: LORAZEPAM 1 MG TAB PO ONE (23:00)
[2019-02-07] MEDS ORDERED: LIDOCAINE/MYLANTA 40 ML BTL PO ONE (23:00)
[2019-02-08] MEDS ORDERED: PIPER-TAZO 3.375 GM IV (PMX) 100 ML IVPB STA (00:04)
[2019-02-08] MEDS ORDERED: metroNIDAZOLE 500 MG/NS (PMX) 100 ML IVPB STA (00:04)
[2019-02-08] MEDS ORDERED: HYDROmorphONE 1 MG/ML SYG IV ONE (00:24)
[2019-02-08] MEDS ORDERED: ONDANSETRON 4 MG INJ IV ONE ×2 (00:25→21:01)
--- NOTE | 2019-02-08 02:31 | ERD ---
ER Documentation Chief Complaint Chief Complaint SWALLOWED A FISH BONE, SWALLOWING PAIN X 2 DAYS HPI This is a very pleasant 63-year female that she swallowed a fishbone possibly 3 days ago and is continued to have pain upon swallowing. Patient seen yesterday had negative x-ray. He said the pain is gotten acutely worse now she is having fevers. Denies nausea or vomiting. Denies any other current complaints. ROS All systems reviewed and are negative except as per history of present illness. Medications Home Meds Active Scripts Mag Hydrox/Al Hydrox/Simeth (Maalox Advanced Suspension) 355 Ml Oral.susp, 355 ML PO BID, #1 Prov:BRYN GLASGOW MD 02/06/19 Reported Medications Lovastatin* (Lovastatin*) 20 Mg Tablet, 20 MG PO HS, TAB 02/06/19 Naproxen* (Naproxen*) 500 Mg Tablet, 500 MG PO NEEDED, TAB 02/06/19 Metformin Hcl* (Metformin Hcl*) 500 Mg Tablet, 500 MG PO WITH BREAKFAST, #30 TAB 02/06/19 Glipizide* (Glipizide*) 5 Mg Tablet, 5 MG PO AC BREAKFAST, TAB 02/06/19 Atenolol* (Atenolol*) 25 Mg Tablet, 25 MG PO DAILY, #30 TAB 02/06/19 Discontinued Reported Medications Glipizide* (Glipizide*) 5 Mg Tablet, 5 MG PO AC BREAKFAST, TAB 12/06/18 Ranitidine Hcl* (Ranitidine Hcl*) 150 Mg Tablet, 150 MG PO Q12, #60 TAB 11/17/18 Lovastatin* (Lovastatin*) 20 Mg Tablet, 20 MG PO HS, TAB 07/27/18 Metformin Hcl* (Metformin Hcl*) 500 Mg Tablet, 500 MG PO WITH BREAKFAST, #30 TAB 07/27/18 Atenolol* (Atenolol*) 25 Mg Tablet, 25 MG PO DAILY, #30 TAB 07/27/18 Allergies Allergies: Coded Allergies: No Known Allergy (Unverified , 02/06/19) PMhx/Soc History of Surgery: Yes (knee, hysterectomy, EGD) Anesthesia Reaction: No Hx Neurological Disorder: No Hx Respiratory Disorders: No Hx Cardiac Disorders: Yes (htn) Hx Psychiatric Problems: No Hx Miscellaneous Medical Probl: No Hx Alcohol Use: No Hx Substance Use: No Hx Tobacco Use: No Physical Exam Vitals Vital Signs Date Temp Pulse Resp B/P (MAP) Pulse Ox O2 O2 Flow FiO2 Time Delivery Rate 02/08/19 84 18 133/78 95 Room Air 00:36 (96) 02/07/19 101.1 100 18 148/74 99 20:29 (98) Physical Exam Const: No acute distress Head: Atraumatic Eyes: Normal Conjunctiva ENT: Normal External Ears, Nose and Mouth. Neck: Full range of motion. No meningismus. Resp: Clear to auscultation bilaterally Cardio: Regular rate and rhythm, no murmurs Abd: Soft, non tender, non distended. Normal bowel sounds Skin: No petechiae or rashes Back: No midline or flank tenderness Ext: No cyanosis, or edema Neur: Awake and alert Psych: Normal Mood and Affect Result Diagram: 02/08/19 0026 02/08/19 0026 Results 24 hrs Laboratory Tests Test 02/08/19 00:26 White Blood Count 13.2 10^3/ul Red Blood Count 4.90 10^6/ul Hemoglobin 14.1 g/dl Hematocrit 43.2 % Mean Corpuscular Volume 88.2 fl Mean Corpuscular Hemoglobin 28.8 pg Mean Corpuscular Hemoglobin Concent 32.6 g/dl Red Cell Distribution Width 13.1 % Platelet Count 247 10^3/UL Mean Platelet Volume 10.0 fl Immature Granulocytes % 0.400 % Neutrophils % 73.1 % Lymphocytes % 18.0 % Monocytes % 7.7 % Eosinophils % 0.3 % Basophils % 0.5 % Nucleated Red Blood Cells % 0.0 /100WBC Immature Granulocytes # 0.050 10^3/ul Neutrophils # 9.7 10^3/ul Lymphocytes # 2.4 10^3/ul Monocytes # 1.0 10^3/ul Eosinophils # 0.0 10^3/ul Basophils # 0.1 10^3/ul Nucleated Red Blood Cells # 0.0 10^3/ul Prothrombin Time 12.6 Sec Prothrombin Time Ratio 1.0 INR International Normalized Ratio 0.93 Activated Partial Thromboplast Time 27.4 Sec Sodium Level 140 mmol/L Potassium Level 3.5 mmol/L Chloride Level 102 mmol/L Carbon Dioxide Level 29 mmol/L Anion Gap 9 Blood Urea Nitrogen 16 mg/dl Creatinine 0.62 mg/dl Est Glomerular Filtrat Rate mL/min > 60 mL/min Glucose Level 148 mg/dl Calcium Level 9.7 mg/dl Total Bilirubin 1.3 mg/dl Direct Bilirubin 0.00 mg/dl Indirect Bilirubin 1.3 mg/dl Aspartate Amino Transf (AST/SGOT) 23 IU/L Alanine Aminotransferase (ALT/SGPT) 19 IU/L Alkaline Phosphatase 81 IU/L Total Protein 8.6 g/dl Albumin 4.7 g/dl Globulin 3.90 g/dl Albumin/Globulin Ratio 1.20 Lipase 28 U/L Current Medications Medications Dose Sig/Wally Start Time Status Last (Trade) Ordered Route PRN Stop Time Admin Dose Reason Admin 40 ml ONCE ONCE 02/07/19 DC 02/07/19 Miscellaneous PO 23:00 02/07/19 23:04 Medication 23:01 (Gi Cocktail (2)) Lorazepam 1 mg ONCE ONCE 02/07/19 DC 02/07/19 (Ativan) PO 23:00 02/07/19 23:04 23:01 100 ml @ ONCE STAT 02/08/19 DC 02/08/19 Metronidazole 100 mls/hr IVPB 00:04 02/08/19 00:49 01:03 Piperacillin 100 ml @ ONCE STAT 02/08/19 DC 02/08/19 Sod/ 200 mls/hr IVPB 00:04 02/08/19 00:22 Tazobactam 00:33 Sod 1 mg ONCE ONCE 02/08/19 DC 02/08/19 Hydromorphone IV 00:24 02/08/19 00:27 HCl 00:25 (Dilaudid) Ondansetron 4 mg ONCE ONCE 02/08/19 DC 02/08/19 HCl (Zofran IV 00:25 02/08/19 00:27 Inj) 00:26 Procedures/MDM CT of the chest and soft tissue collection demonstrates a perforated esophagus. Please see review radiologist full dictation full report. Medical decision making: This is an unfortunate 63 female has an esophageal perforation with likely mediastinitis. She has been on broad-spectrum antibiotics and her blood pressure remains completely stable. I did speak to ENT on-call, however ENT on-call feel uncomfortable taking care of this patient here surgically given that he has no cardiothoracic back-up. At this point we will try to place the patient with a tertiary care center that can offer the services.. . Critical Care: Time: 45 minutes, independent of any separately billable procedural time Treatments/Evaluations: Close monitoring and treatment of unstable vital signs, cardiorespiratory, and neurologic status, while maintaining tight balance of fluid, respiratory, and cardiac interventions. Departure Diagnosis: Primary Impression: Esophageal perforation Additional Impression: Mediastinitis Condition: Serious TALI QUINONES Feb 08, 2019 02:31
[2019-02-08] MEDS ORDERED: DIC20 PO (04:43)
--- NOTE | 2019-02-08 05:19 | QN ---
Documentation Comment Patient accepted to [facility] for ER to ER transfer for higher level of care TALI QUINONES. Feb 08, 2019 05:19
[2019-02-08] MEDS ORDERED: HYDROmorphONE 0.5 MG/0.5 ML SYG IV STA ×2 (12:28→19:47)
[2019-02-08] MEDS ORDERED: PIPER-TAZO 3.375 GM IV (PMX) 100 ML IVPB SCH (14:30)
--- NOTE | 2019-02-08 14:33 | QN ---
Documentation Comment Observation Note: Indication: Mediastinitis and esophageal perforation Duration: Greater than 18 hours Family history: No diabetes The patient was observed with serial exams over the above timeframe. The patient continued to be well-appearing, and observation continued without complication. The patient continues to have mild symptoms. She has no signs of decompensation at this time. Please see documentation in the note section. The patient has had extensive efforts to place the patient. Because of the complicated nature and the fact that we have not had a cardiothoracic surgeon call back I do not have the ability to care for this patient this time. A significant effort has been made to transfer this patient. Please see documentation in the note section. The following hospitals were contacted. Either secondary to no bed a vailability, no specialist availability or other factors the patient was not accepted at [facility] At one point the patient was accepted by [facility]. However a prolonged period of time went by without callback from this facility. After multiple phone calls we eventually were able to get information that they do not have a bed available and cannot provide us any timeframe for when a bed will become available. In my opinion this is not acceptable disposition planning for this patient who needs more emergent care. We have continued to try and contact our cardiothoracic team with multiple phone calls not returned at this time. We will continue to reach out to those providers. I have again reached out [place] [facility] [place] attempt to find [place] for this patient. Repeat laboratory testing has been sent. The patient continues to be hemodynamically stable. Every 6 hours Zosyn dosing has been added to maintain antibiotic coverage in the emergency room setting. Patient is endorsed to the oncoming provider. Email Engineer and RECORDINGS LIBRARIAN notified of this issue and current situation. RENATO GARCIA MD Feb 08, 2019 14:33
[2019-02-08] MEDS ORDERED: FLUCONAZOLE 400 MG/NS (PMX) 200 ML IVPB ONE (15:00)
[2019-02-08] MEDS ORDERED: VANCOMYCIN 1 GM (PMX) 250 ML IVPB ONE (15:00)
[2019-02-09 00:15] VITALS: BP 115/63; PULSE 83; RESP 16
[2019-02-09] MEDS ORDERED: ONDANSETRON 4 MG INJ IV STA (00:15)
== END 2019-02-09 02:48 | disposition home or self-care (01) ==
LOC: E/R 19:48
DX: K22.3 Perforation of esophagus (principal); J98.51 Mediastinitis; I10 Essential (primary) hypertension; E11.9 Type 2 diabetes mellitus without complications; R07.9 Chest pain, unspecified; Z79.84 Long term (current) use of oral hypoglycemic drugs
CPT/HCPCS: 36415; 70490; 71045; 71250; 80048; 80053; 83690; 85025; 85610; 85730; 87040; 96374; 96375; 96376; J1170; J1450; J2405; J2543; J3370; Z7502; Z7610